=== PATIENT | female | born 1965 | race Caucasian/White ===

== ENCOUNTER 2024-05-09 08:21 | Day surgery (SDC) | payer BC ==
[2024-05-06 14:56] VITALS: BMI 26.3
[2024-05-09] MEDS ORDERED: Acetaminophen 500 MG TAB ONE (09:58)
[2024-05-09] MEDS ORDERED: Ketorolac Tromethamine 30 MG (1 mL) VIAL ONE (09:59)
[2024-05-09] MEDS ORDERED: fentaNYL 50 mcg/mL 1 mL Vial ONE ×5 (10:16→14:49)
[2024-05-09] MEDS ORDERED: Midazolam HCl 2 mg/2 ml Vial ONE (10:16)
[2024-05-09] MEDS ORDERED: Bupivacaine 0.25% HCL 30 ML VIAL ONE (10:16)
[2024-05-09] MEDS ORDERED: Scopolamine 1 mg/72 hour Patch ONE (10:16)
[2024-05-09] MEDS ORDERED: Lidocaine 1% w/Epinephrine 1:200K 30 ML VIAL ONE (11:35)
[2024-05-09] MEDS ORDERED: Isosulfan Blue 50 MG/5 ML VIAL ONE (11:36)
[2024-05-09] MEDS ORDERED: PROPOFOL 20 ML ONE (11:37)
[2024-05-09] MEDS ORDERED: Metoclopramide HCl 10 MG (2 mL) VIAL ONE (11:38)
[2024-05-09] MEDS ORDERED: Lidocaine 1% PF 5 ML VIAL ONE (11:38)
[2024-05-09] MEDS ORDERED: Ondansetron PF 4 MG/2 ML Vial ONE (11:38)
[2024-05-09] MEDS ORDERED: Dexamethasone 4 mg/ml Vial ONE (11:38)
[2024-05-09] MEDS ORDERED: CEFAZOLIN 2 GM VIAL ONE (11:45)
[2024-05-09] MEDS ORDERED: PHENYLEPHRINE-NS 100 MCG/ML 10 ML SYRINGE ONE (12:30)
[2024-05-09] MEDS ORDERED: ePHEDrine Sulfate 50 MG/10 ML VIAL ONE (12:37)
[2024-05-09] MEDS ORDERED: Promethazine HCl 25 MG/ML VIAL ONE (16:28)
== END 2024-05-09 17:40 | disposition home or self-care (01) ==
LOC: CSHSDC 08:21
PROVIDERS: ATTEND Specialist
PROC: 07B50ZZ Excision of Right Axillary Lymphatic, Open Approach (ICD-10-PCS; principal; 2024-05-09)
PROC: 0HTV0ZZ Resection of Bilateral Breast, Open Approach (ICD-10-PCS; principal; 2024-05-09)
DX: C50.911 Malignant neoplasm of unspecified site of right female breast (principal); D05.01 Lobular carcinoma in situ of right breast; N60.11 Diffuse cystic mastopathy of right breast; I10 Essential (primary) hypertension; Z17.0 Estrogen receptor positive status [ER+]; Z98.890 Other specified postprocedural states; Z90.710 Acquired absence of both cervix and uterus; Z79.899 Other long term (current) drug therapy; Z90.49 Acquired absence of other specified parts of digestive tract; Z88.2 Allergy status to sulfonamides; Z88.5 Allergy status to narcotic agent; Z88.0 Allergy status to penicillin
CPT/HCPCS: 78195; 88307; 88309; 88342; A6258; A9541; J0665; J1100; J1885; J2250; J2405; J2550; J2704; J2765; J3010; Q9968

== ENCOUNTER 2024-08-01 08:04 | Outpatient (CLI) | payer BC | END 2024-08-01 08:05 | disposition home or self-care (01) | LOC: CSHULT 08:04 | PROVIDERS: ATTEND Family Medicine | DX: R10.84 Generalized abdominal pain (principal); K76.0 Fatty (change of) liver, not elsewhere classified | CPT/HCPCS: 76700 ==